=== PATIENT | male | born 1960 | race Caucasian/White ===

== ENCOUNTER 2021-07-26 12:53 | Emergency (ER) | payer BC ==
[~2021-07-26] VITALS: Ht 172.7 cm; Wt 81.6 kg
[2021-07-26 12:53] VITALS: BP 163/103
--- NOTE | 2021-07-26 12:53 | NUR ---
ARRIVAL PT PRESENTS TO THE ED VIA AMBULATORY WITH C/O KIDNDEY STONE. PT STATES THAT HE WAS RECENTLY IN ANOTHER ER AND WAS DIAGNOSED WITH A 5 MM KIDNEY STONE ON 07-22-21, PT WAS TRAVELING AND STARTED TO GET SEVERE PAIN AND STATED HE COULD NOT HANDLE THE PAIN ANYMORE AND CAME TO THE ER. VITALS OBTAINED, PT STABLE, NOTIFIED OF PT ARRIVAL.
--- NOTE | 2021-07-26 13:00 | ER.PDOC ---
General Chief Complaint: Requesting Medical Care Stated Complaint: KIDNEY STONE TRAVEL OUT OF US: No Time seen by MD: 13:00 Source: patient Exam Limitations: no limitations History of Present Illness Initial Comments This 61-year-old white male comes in with acute renal colic. Patient no kidney stone. He was out in [place] at the [place] when he first got the flank pain. This was 4 days ago. Patient was seen in a local hospital there and told he had a kidney stone that was obstructing the right side and told him to go back onto [place]. Patient stated that he just had some achiness until this morning when he had sudden severe pain return with nausea and vomiting sweating. Timing/Duration: 1-3 hours Severity: severe Modifying Factors: improves with other (Nothing changes a severe pain) Associated Symptoms: diaphoresis, nausea/vomiting Allergies: Coded Allergies: No Known Drug Allergies (Verified Allergy, Unknown, 07/26/21) Past Medical History Medical History: no pertinent history Surgical History: other Social History Smoking: non-smoker Alcohol Use: none Drug Use: none Review of Systems Constitutional: denies no symptoms reported, denies see HPI, denies chills, denies diaphoresis, denies fever, denies malaise, denies weakness, denies other EENTM: denies no symptoms reported, denies see HPI, denies eye pain, denies blurred vision, denies tearing, denies double vision, denies ear pain, denies ear discharge, denies nose pain, denies nose congestion, denies throat pain, denies throat swelling, denies mouth pain, denies mouth swelling, denies other Respiratory: denies no symptoms reported, denies see HPI, denies cough, denies orthopnea, denies shortness of breath, denies stridor, denies wheezing, denies other Cardiovascular: denies no symptoms reported, denies see HPI, denies chest pain, denies edema, denies palpitations, denies syncope, denies other Gastrointestinal: denies no symptoms reported, denies see HPI, denies abdominal pain, denies constipation, denies diarrhea, denies nausea, denies vomiting, denies other Genitourinary: see HPI; denies discharge, denies dysuria, denies frequency, denies hematuria; pain, other (Severe right flank pain radiating down into his groin) Musculoskeletal: denies no symptoms reported, denies see HPI, denies back pain, denies gout, denies joint pain, denies joint swelling, denies muscle pain, denies muscle stiffness, denies neck pain, denies other Skin: denies no symptoms reported, denies see HPI, denies change in color, denies change in hair/nails, denies dryness, denies lesions, denies lumps, denies rash, denies other Psychiatric/Neurological: denies no symptoms reported, denies see HPI, denies anxiety, denies depressed, denies emotional problems, denies headache, denies numbness, denies paresthesia, denies pre-existing deficit, denies seizure, denies tingling, denies tremors, denies weakness, denies other Hematologic/Lymphatic: denies no symptoms reported, denies see HPI, denies anemia, denies blood clots, denies easy bleeding, denies easy bruising, denies swollen glands, denies other Immunological/Allergic: denies no symptoms reported, denies see HPI, denies food allergy, denies grass allergy, denies mold allergy, denies pollen allergy, denies HIV/AIDS, denies transplant Physical Exam General Appearance: WD/WN, Severe Distress EENT: eyes nml inspection, nml ENT inspection Neck: Non-Tender, Full Range of Motion, Supple Respiratory: lungs clear, normal breath sounds, no respiratory distress CVS: reg rate & rhythm Gastrointestinal: Normal Bowel Sounds, Non Tender Back: Normal Inspection Extremities: Normal Range of Motion Neurologic/Psychiatric: junk removal specialist II-XII NML as Tested, No Motor/Sensory Deficits, Alert, Normal Mood/Affect Skin: Normal Color, Warm/Dry Lymphatic: No Adenopathy Results/Orders Results/Orders Orders - MATTY CARRERA MD Urinalysis (07/26/21 13:00) Ketorolac Tromethamine (Toradol) (07/26/21 13:11) Promethazine Hcl (Phenergan) (07/26/21 13:11) Cbc With Auto Diff (07/26/21 13:11) Basic Metabolic Panel (07/26/21 13:11) 0.9 % Sodium Chloride (Ns 1000ml) (07/26/21 13:11) 0.9 % Sodium Chloride (Ns 1000ml) (07/26/21 13:14) Ketorolac Tromethamine (Toradol) (07/26/21 13:14) Promethazine Hcl (Phenergan) (07/26/21 13:14) Ct Abd/Pelvis Wo Iv Contrast (07/26/21 13:32) Vital Signs Date Time Temp Pulse Resp B/P (MAP) Pulse Ox O2 Delivery O2 Flow Rate FiO2 07/26/21 12:53 98.2 79 18 07/26/21 12:53 98.2 79 18 97 07/26/21 12:53 98.2 79 18 163/103 (123) 97 Room Air* 0 21 Administered Medications Medications (Trade) Dose Ordered Sig/Komal Route PRN Reason Start Time Stop Time Status Last Admin Dose Admin Ketorolac Tromethamine (Toradol) 30 mg OT STAT IV 07/26/21 13:11 07/26/21 13:14 DC 07/26/21 13:17 30 MG Promethazine HCl (Phenergan) 25 mg OT STAT IV 07/26/21 13:11 07/26/21 13:14 DC 07/26/21 13:17 25 MG Sodium Chloride 1,000 ml @ 0 mls/hr Q0M STAT IV 07/26/21 13:11 07/26/21 13:14 DC 07/26/21 13:17 0 MLS/HR Laboratory Tests Test 07/26/21 13:50 07/26/21 13:55 Sodium Level 137 mmol/L (132-145) Potassium Level 3.7 mmol/L (3.6-5.2) Chloride Level 104.0 mmol/L (96-109) Carbon Dioxide Level 24.2 mmol/L (20.0-32) Glucose Level 106 mg/dL (70-110) Blood Urea Nitrogen 18 mg/dL (7-18) Creatinine 1.34 mg/dL (0.59-1.40) Calcium Level 9.6 mg/dL (8.4-10.5) Anion Gap 12.5 Estimated GFR () 65.1 (>/=60) Est GFR (CKD-EPI)(Non-Afr [place]) 53.8 (>/=60) BUN/Creatinine Ratio 13.0 White Blood Count 7.2 10^3/uL (4.5-11.0) Red Blood Count 5.72 10^6/uL (4.50-5.90) Hemoglobin 16.7 g/dL (13.9-16.3) H Hematocrit 50.7 % (37.0-53.0) Mean Corpuscular Volume 88.6 fL (78-100) Mean Corpuscular Hemoglobin 29.2 pg (26-34) Mean Corpuscular Hemoglobin Concent 32.9 g/dL (33-36.5) L Red Cell Distribution Width 13.6 % (11.5-14.5) Platelet Count 194 10^3/uL (150-400) Mean Platelet Volume 11.8 fL (7.8-11.0) H Neutrophils (%) (Auto) 65.8 % (41.0-85.0) Lymphocytes (%) (Auto) 25.0 % (24.0-44.0) Monocytes (%) (Auto) 5.4 % (5.0-12.0) Neutrophils # (Auto) 4.8 10^3/uL (1.8-7.7) Lymphocytes # (Auto) 1.81 10^3/uL1 (1.0-4.8) Monocytes # (Auto) 0.4 10^3/uL (0.3-0.8) Absolute Immature Granulocyte (auto 0.01 10^3 u/L (0-2) Absolute Eosinophils (auto) 0.2 10^3/uL (0.0-0.2) Immature Granulocytes % 0.10 % (0.00-0.50) Eosinophils % 3.3 % (0.0-5.0) Basophils % 0.4 % (0.0-0.2) H Basophils # 0.0 10^3/uL (0.0-0.1) Progress Progress Patient was given Phenergan and Toradol IV for his acute pain and nausea vomiting. This has rapidly improved his pain. CT scan was obtained and CT scan shows the stone to be right at the ureter ureterovesicular junction. Patient is essentially pain-free now and is ready to be discharged. His CBC chemistries and UA are all unremarkable. ER DEPART Departure Time of Disposition: 15:04 Disposition: 01 HOME / SELF CARE / HOMELESS Impression: Primary Impression: Right ureteral calculus Additional Impression: Renal colic on right side Condition: Improved Referrals: PCP,UNKNOWN (PCP) PRIMARY CARE PROVIDER Comments Toradol 10 mg tabs 1 p.o. 4 times daily as needed pain dispense 20 Duration or Time Spent with Pa: 20m Problem Qualifiers MATTY CARRERA MD July 26, 2021 13:00
[2021-07-26] MEDS ORDERED: TORADOL IV STA (13:11)
[2021-07-26] MEDS ORDERED: NS 1000ML 1,000 ML IV STA (13:11)
[2021-07-26] MEDS ORDERED: PHENERGAN IV STA (13:11)
[2021-07-26] MEDS ORDERED: TORADOL ONE (13:14)
[2021-07-26] MEDS ORDERED: NS 1000ML 1,000 ML ONE (13:14)
[2021-07-26] MEDS ORDERED: PHENERGAN ONE (13:14)
[2021-07-26 13:59] LABS: BASOPHIL % 0.4 % (0.0-0.2); EOSINOPHIL # 0.2 10^3/uL (0.0-0.2); EOSINOPHIL % 3.3 % (0.0-5.0); LYMPHOCYTES # 1.81 10^3/uL1 (1.0-4.8); MEAN CORP HGB 29.2 pg (26-34); MONOCYTES # 0.4 10^3/uL (0.3-0.8); MONOCYTES % 5.4 % (5.0-12.0); NEUTROPHIL # 4.8 10^3/uL (1.8-7.7); NEUTROPHILS % 65.8 % (41.0-85.0); RED CELL DISTRIBUTION WIDTH 13.6 % (11.5-14.5)
[2021-07-26 14:09] LABS: CARBON DIOXIDE 24.2 mmol/L (20.0-32)
--- NOTE | 2021-07-26 14:31 | DIREP ---
PROCEDURE:CT ABDOMEN/PELVIS W/O CONTRAST COMPARISON:None. INDICATIONS:renal colic TECHNIQUE:Axial images were created through the abdomen and pelvis without intravenous contrast material. No oral contrast was administered. Sagittal and coronal reconstructions were performed from source images. FINDINGS: LUNG BASES:Normal. No visible pulmonary or pleural disease. LIVER:Normal. No significant liver lesions are identified. BILIARY:Normal. No visible dilatation or calcification. PANCREAS:Normal. No lesion, fluid collection, ductal dilatation, or atrophy. SPLEEN:Normal. No enlargement or focal lesion. ADRENALS:Normal. No mass or enlargement. URINARY TRACT:2-3 mm obstructing calculus at the right ureterovesicular junction. There is mild right-sided hydronephrosis and hydroureter. No additional renal or ureteral calculi are seen. AORTA/VASCULAR:Normal. No aneurysm. RETROPERITONEUM:Normal. No mass or adenopathy. BOWEL/MESENTERY:Bowel anastomotic sutures in the rectosigmoid region status post sigmoid colectomy. There multiple diverticula near the anastomotic site dorsal scattered throughout the remainder of the colon. Appendix not visualized. No pericecal inflammatory changes. No intestinal obstruction, free fluid, free air, or mesenteric inflammatory changes. ABDOMINAL WALL:Normal. No mass or hernia. PELVIC ORGANS:Normal. No visible mass. Pelvic organs appropriate for patient age. Left pelvis is partially obscured by streak artifact from left hip replacement. BONES:Advanced lower lumbar degenerative disc disease. Left total hip replacement. OTHER:Negative. CONCLUSION: 1. 2-3 mm obstructing calculus at the right ureterovesicular junction with mild right-sided hydronephrosis and hydroureter. Dictated by: Javier White MD on 07/26/2021 at 02:22 PM
[2021-07-26 15:00] VITALS: BP 139/88
== END 2021-07-26 15:08 | disposition home or self-care (01) ==
LOC: ER 12:53
DX: N20.1 Calculus of ureter (principal); N23 Unspecified renal colic
CPT/HCPCS: 36415; 74176; 80048; 85025; 96361; 96374; 96375; 99284; J1885; J2550; J7030